=== PATIENT | female | born 1965 | race Caucasian/White ===

== ENCOUNTER 2023-02-10 11:19 | Emergency (ER) | payer OTHER, SELFPAY ==
--- NOTE | ~2023-02-10 | XR_ITS ---
XR ankle LT min 3V DATE: 02/10/2023 11:53 INDICATION: Injury, lateral ankle pain TECHNIQUE: 4 views COMPARISON: None FINDINGS: There is a nondisplaced transverse acute fracture of the lateral malleolus. No other ankle fracture is noted. The ankle mortise appears intact. There is surgical arthrodesis at the tarsal and tarsometatarsal area. These extensive calcification of the posterior tibial artery. IMPRESSION: Transverse nondisplaced lateral malleolar fracture Reviewed, dictated and finalized at location A.
--- NOTE | 2023-02-10 11:21 | ED.LOWEXIN ---
HPI - Extremity Injury (Lower) General Chief Complaint: Extremity Injury, Lower Stated Complaint: INJURED L ANKLE Time Seen by Provider: 02/10/23 11:21 Source: patient Mode of arrival: ambulatory Limitations: no limitations History of Present Illness HPI Narrative: Patient is a 57-year-old female that presents with left ankle pain after rolling it on a drum stick on Saturday. Patient states she is still able walk but it is painful. She reports mild swelling or bruising. Has been elevating, icing and taking ibuprofen. Denies any numbness or tingling to foot. Has previously broken the foot and has ortho follow-up at [facility] Medications Medication Instructions Recorded Confirmed atorvastatin 10 mg tablet mg 02/10/23 cyclosporine modified 25 mg mg 02/10/23 capsule (Gengraf) estradiol 0.05 mg/24 hr semiweekly 02/10/23 transdermal patch (Lyllana) metformin 500 mg tablet,extended mg PO 02/10/23 release 24 hr prednisone 5 mg tablet mg 02/10/23 progesterone micronized 100 mg mg 02/10/23 capsule sitagliptin phosphate 25 mg tablet mg 02/10/23 (Januvia) trazodone 100 mg tablet mg 02/10/23 Allergies Allergy/AdvReac Type Severity Reaction Status Date / Time No Known Allergies Allergy Verified 02/10/23 11:39 Review of Systems Review of Systems: All systems reviewed & are unremarkable except as noted in HPI and below Constitutional: Constitutional: Denies body ache(s), Denies chills, Denies fatigue, Denies fever(s), Denies headache(s), Denies malaise and Denies weakness Eyes: Eyes: Denies blurry vision, Denies irritation and Denies loss of vision ENT: Denies otalgia, Denies headache(s), Denies nasal discharge, Denies sinus pain and Denies sore throat Cardiovascular: Cardiovascular: Denies chest pain, Denies irregular heart rhythm and Denies dyspnea Respiratory: Respiratory: Denies dyspnea Gastrointestinal: Gastrointestinal: Denies abdominal pain, Denies melena, Denies hematochezia, Denies diarrhea, Denies nausea and Denies vomiting Musculoskeletal: Musculoskeletal: Denies back pain, Denies myalgias, Reports arthralgias and Reports joint swelling Integumentary/Breasts: Skin/Breast: Denies pruritus and Denies rash Neurologic: Denies headache(s), Denies loss of vision and Denies weakness Psychiatric: Psychiatric: Reports no additional psychiatric complaints Endocrine: Endocrine: Denies fatigue PMFSH Comments At time of signature, agree with nursing past medical, surgical, social and family history. There is no relevant family history pertinent to the presenting complaint. Exam Const: General: cooperative, healthy appearing, comfortable, no acute distress and well nourished Nutritional Appearance: well nourished Orientation/consciousness: patient oriented x3 Limitations: no limitations HENMT: Head: normal to inspection, normocephalic and atraumatic Ears: hearing grossly normal bilaterally and external ears normal Face/Nose/Sinus: Normal external nose present, normal facial exam and face symmetric Face and sinus: normal facial exam and face symmetric Mouth: Yes lip normal Eyes: General: appearance normal, both eyes and all related structures Alignment and Position: alignment normal and position normal Periorbital: periorbital findings normal Eyelids: eyelids normal Pupils: Equal, round and reactive pupils present EOM: EOMs intact bilaterally Neck: Neck: normal visual inspection, full ROM and supple Chest: Chest palpation & inspection: normal inspection of the chest Resp: Effort & Inspection: normal respiratory effort and able to speak in complete sentences Auscultation: clear to auscultation bilaterally Cardio: Rate: regular rate Rhythm: regular rhythm Heart sounds: S1 normal heart sound present and S2 normal heart sound present GI: Inspection: normal to inspection Skin: General skin exam: normal color and no rashes or lesions noted Neuro: General: patient chemo
[2023-02-10 11:33] VITALS: BP 114/79; PULSE 89; RESP 16; TEMP 36.6; O2SAT 100
== END 2023-02-10 12:56 | disposition home or self-care (01) ==
PROVIDERS: Emergency Provider Nurse Practitioner Family; PCP Physician Assistant
DX: S82.892A Other fracture of left lower leg, initial encounter for closed fracture (principal); Z79.899 Other long term (current) drug therapy; Z79.84 Long term (current) use of oral hypoglycemic drugs; X50.0XXA Overexertion from strenuous movement or load, initial encounter
CPT/HCPCS: 29515; 73610; 99204; G0463